=== PATIENT | male | born 1965 | race Caucasian/White ===

== ENCOUNTER 2016-03-20 17:35 | Emergency (ER) | payer MEDICARE, MEDICAID ==
[~2016-03-20] VITALS: Ht 167.6 cm; Wt 75.0 kg
[~2016-03-20 17:35] MED LIST: BUPR150CR PO; INVE1.5T PO; NAPR550T3 PO; REME30TA PO
[2016-03-20 17:36] VITALS: BP 150/86; PULSE 78; RESP 12; TEMP 97.9; O2SAT 97
[2016-03-20 19:00] VITALS: BP 137/90; PULSE 57; RESP 20; TEMP 98.7; O2SAT 95
[2016-03-20] MEDS ORDERED: SODIUM CHLORIDE 0.9% FLUSH 5 ML FLUSH IVF PRN (19:15)
--- NOTE | 2016-03-20 20:07 | PD ---
HPI . Alcohol abuse and suicidal ideation Chief Complaint: Psychiatric Symptoms Time Seen by Provider: 19:11 Travel History International Travel<30 days: No Contact w/Intl Traveler<30days: No Traveled to known affect area: No History of Present Illness HPI Patient presents complaining with alcohol abuse and suicidal ideation. He states that he had been clean and sober for several years but relapsed a couple of months ago. He states that he was in an AA meeting [email or web address]. He was expressing suicidal ideation. He was subsequently brought here for evaluation. He is voluntary. He does not have a definitive plan but states that he would probably overdose. PFSH Past Medical History Cerebrovascular Accident: Yes Gastrointestinal Disorders: Yes (endoscopy/colonoscopy 2012) GERD: Yes Hepatitis: Yes (C) Integumentary: Yes (ulcer on rt heel, scarred ) Past Surgical History Thoracic Surgery: Yes (moriah filter rt leg for dvt) Other Surgery: Yes (trachyotomy) Social History Alcohol Use: No (recovering addict) Tobacco Use: Yes (10 cigs daily) Substance Use: No Allergies-Medications (Allergen,Severity, Reaction): Coded Allergies: No Known Allergies (Unverified , 01/13/16) does not want narcotics/recovering addict Reported Meds & Prescriptions Reported Meds & Active Scripts Active No Active Prescriptions or Reported Medications Review of Systems Except as stated in HPI: all other systems reviewed are Neg General / Constitutional: No: Fever, Chills HENT: Positive: Headaches Cardiovascular: Positive: Chest Pain or Discomfort Respiratory: Positive: Shortness of Breath Gastrointestinal: Positive: Nausea, Vomiting, Abdominal Pain Musculoskeletal: Positive: Myalgias, Arthralgias Psychiatric: Positive: Depression, Suicidal Ideations, Mood Disorder, Substance Abuse Physical Exam Narrative GENERAL: This is a tearful man who smells of alcohol but he does not have slurred speech SKIN: Warm and dry. HEAD: Atraumatic. Normocephalic. EYES: Pupils equal and round. Sclerae are anicteric. ENT: No nasal bleeding or discharge. Mucous membranes pink and moist. NECK: Trachea midline. Neck is supple with full range of motion. CARDIOVASCULAR: Regular rate and rhythm. Heart sounds are normal. RESPIRATORY: No accessory muscle use. Lungs are clear with full air movement throughout. GASTROINTESTINAL: Abdomen soft, non-tender, nondistended. MUSCULOSKELETAL: No obvious deformities. No edema. NEUROLOGICAL: Awake and alert. No obvious cranial nerve deficits. Motor grossly within normal limits. Normal speech. PSYCHIATRIC: Sad with suicidal ideation but no clear plan. He does make good eye contact with the examiner. He did tell someone that he was sad and suicidal before initiating any attempt. Data Data Last Documented VS Vital Signs Date Time Temp Pulse Resp B/P Pulse Ox O2 Delivery O2 Flow Rate FiO2 03/20/16 19:00 98.7 57 20 137/90 95 Room Air Orders Complete Blood Count With Diff (03/20/16 19:12) Comprehensive Metabolic Panel (03/20/16 19:12) Drug Screen, Random Urine (03/20/16 19:12) Electrocardiogram (03/20/16 19:12) Alcohol (Ethanol) (03/20/16 19:12) Psych Screen (03/20/16 19:12) Sodium Chloride 0.9% Flush (Ns Flush) (03/20/16 19:15) Labs Laboratory Tests Test 03/20/16 03/20/16 19:10 19:40 White Blood Count 10.5 TH/MM3 Red Blood Count 4.87 MIL/MM3 Hemoglobin 15.7 GM/DL Hematocrit 45.3 % Mean Corpuscular Volume 93.2 FL Mean Corpuscular Hemoglobin 32.2 PG Mean Corpuscular Hemoglobin 34.6 % Concent Red Cell Distribution Width 13.5 % Platelet Count 155 TH/MM3 Mean Platelet Volume 10.3 FL Neutrophils (%) (Auto) 63.6 % Lymphocytes (%) (Auto) 29.4 % Monocytes (%) (Auto) 5.7 % Eosinophils (%) (Auto) 0.7 % Basophils (%) (Auto) 0.6 % Neutrophils # (Auto) 6.7 TH/MM3 Lymphocytes # (Auto) 3.1 TH/MM3 Monocytes # (Auto) 0.6 TH/MM3 Eosinophils # (Auto) 0.1 TH/MM3 Basophils # (Auto) 0.1 TH/MM3 CBC Comment DIFF FINAL Differential Comment Sodium Level 135 MEQ/L Potassium Level 3.8 MEQ/L Chloride Level 99 MEQ/L Carbon Dioxide Level 23.9 MEQ/L Anion Gap 12 MEQ/L Blood Urea Nitrogen 12 MG/DL Creatinine 0.94 MG/DL Estimat Glomerular Filtration 85 ML/MIN Rate Random Glucose 74 MG/DL Calcium Level 8.7 MG/DL Total Bilirubin 0.5 MG/DL Aspartate Amino Transf 92 U/L (AST/SGOT) Alanine Aminotransferase 66 U/L (ALT/SGPT) Alkaline Phosphatase 47 U/L Total Protein 8.0 GM/DL Albumin 4.1 GM/DL Ethyl Alcohol Level 196 MG/DL Urine Opiates Screen NEG Urine Barbiturates Screen NEG Urine Amphetamines Screen NEG Urine Benzodiazepines Screen NEG Urine Cocaine Screen NEG Urine Cannabinoids Screen NEG MDM Medical Decision Making Medical Screen Exam Complete: Yes Emergency Medical Condition: Yes Interpretation(s) EKG shows a normal sinus rhythm with no acute ischemic change. He has no old EKGs for comparison. Differential Diagnosis Differential diagnosis includes but is not limited to depression with suicidal gesture, suicide attempt, suicidal ideation, attention seeking behavior. Narrative Course Patient presents voluntarily for evaluation of alcohol abuse and suicidal ideation. I have initiated a medical clearance exam. CBC is normal. Tox screen is negative. Chemistries are unremarkable. Alcohol level is 196. Patient is medically clear for psychiatric evaluation. Diagnosis Primary Impression: Alcohol abuse Additional Impression: Suicidal ideation Scripts No Active Prescriptions or Reported Meds Condition: Ana Loera MD Mar 20, 2016 20:07
[2016-03-20 20:18] LABS: AUTOMATED NEUTROPHIL # 6.7 TH/MM3 (1.8-7.7); BASOPHIL # 0.1 TH/MM3 (0-0.2); BASOPHIL % 0.6 % (0.0-2.0); EOSINOPHIL # 0.1 TH/MM3 (0-0.4); EOSINOPHIL % 0.7 % (0.0-4.0); HEMATOCRIT 45.3 % (39.0-51.0); HEMO FLAGS DIFF FINAL; LYMPH % 29.4 % (9.0-44.0); LYMPHOCYTE # 3.1 TH/MM3 (1.0-4.8); MEAN CELL VOLUME 93.2 FL (80.0-100.0); MEAN CORPUSCULAR HEMOGLOBIN 32.2 PG (27.0-34.0); MEAN CORPUSCULAR HGB CONC 34.6 % (32.0-36.0); MONO % 5.7 % (0.0-8.0); NEUT % 63.6 % (16.0-70.0); PLATELET COUNT 155 TH/MM3 (150-450); RED BLOOD COUNT 4.87 MIL/MM3 (4.50-5.90); RED CELL DISTRIBUTION WIDTH 13.5 % (11.6-17.2); WHITE BLOOD COUNT 10.5 TH/MM3 (4.0-11.0)
[2016-03-20 20:26] LABS: AMPHETAMINE, URINE NEG (NEG); BARBITURATES, URINE NEG (NEG); COCAINE, URINE NEG (NEG)
[2016-03-20 20:46] LABS: ALKALINE PHOSPHATASE 47 U/L (45-117); ALT (GPT) 66 U/L (12-78); ANION GAP 12 MEQ/L (5-15); AST (GOT) 92 U/L (15-37); BICARBONATE 23.9 MEQ/L (21.0-32.0); BLOOD UREA NITROGEN 12 MG/DL (7-18); CHLORIDE 99 MEQ/L (98-107); GLOMERULAR FILTRATION RATE 85 ML/MIN (>89); SODIUM (NA) 135 MEQ/L (136-145); TOTAL BILIRUBIN ADULT 0.5 MG/DL (0.2-1.0)
[2016-03-20 20:47] LABS: POTASSIUM 3.8 MEQ/L (3.5-5.1)
[2016-03-20] MEDS ORDERED: LORazepam 2 MG/ML VIAL IV PUSH ONE (23:00)
[2016-03-20 23:45] VITALS: BP 122/79; PULSE 95; RESP 18; O2SAT 99
[2016-03-21 01:53] VITALS: BP 101/61; PULSE 78; RESP 18; O2SAT 97
[2016-03-21 06:27] VITALS: BP 110/65; PULSE 63; RESP 18; TEMP 98.3; O2SAT 99
[2016-03-21 10:30] VITALS: BP 136/72; PULSE 61; RESP 16; O2SAT 92
[2016-03-21 14:34] VITALS: BP 124/76; PULSE 60; RESP 18; TEMP 97.4; O2SAT 96
[2016-03-21 18:09] VITALS: BP 103/72; PULSE 61; RESP 16; O2SAT 90
--- NOTE | 2016-03-21 20:13 | EKG ---
Date Performed: 03/20/2016 Time Performed: 20:10:18 PTAGE: 50 years EKG: SINUS BRADYCARDIA BORDERLINE ECG NO PREVIOUS TRACING DOCTOR: Isak López Interpretating Date/Time 03/21/2016 20:13:13
[2016-03-21 22:00] VITALS: BP 110/69; PULSE 50; RESP 18; O2SAT 97
[2016-03-22 02:41] VITALS: BP 104/60; PULSE 86; RESP 19; O2SAT 94
[2016-03-22 06:16] VITALS: BP 123/51; PULSE 51; RESP 18; TEMP 97.1; O2SAT 99
[2016-03-22 08:42] VITALS: BP 123/51; PULSE 51; RESP 18; O2SAT 99
[2016-03-22 10:39] VITALS: BP 120/67; PULSE 86; RESP 17; O2SAT 97
== END 2016-03-22 13:27 ==
LOC: NEPC 17:35 → NEPJ 03-22 13:27
DX: F10.10 Alcohol abuse, uncomplicated (principal); R45.851 Suicidal ideations; F17.210 Nicotine dependence, cigarettes, uncomplicated; R94.31 Abnormal electrocardiogram [ECG] [EKG]
CPT/HCPCS: 80053; 80307; 80320; 85025; 93005; 96374; 99284; J2060

== ENCOUNTER 2016-07-11 15:20 | Emergency (ER) | payer MEDICARE, MEDICAID, OTHER ==
[~2016-07-11] VITALS: Ht 167.6 cm; Wt 75.0 kg
[2016-07-11 15:30] VITALS: BP 147/99; PULSE 108; RESP 18; TEMP 97.5; O2SAT 100
[2016-07-11] MEDS ORDERED: SODIUM CHLOR 0.9% 1000 ML INJ 1,000 ML IV ONE (15:45)
--- NOTE | 2016-07-11 15:52 | PD ---
HPI Chief Complaint: Psychiatric Symptoms Time Seen by Provider: 15:47 Travel History International Travel<30 days: No Contact w/Intl Traveler<30days: No Traveled to known affect area: No History of Present Illness HPI 50 year old male with PMH of Hep C (treated) GERD, depression, anxiety, ETOH abuse presents to the ED under [place] Act by law enforcement for suicidal ideation. The patient endorses suicidal ideation on presentation and states that he took "a handful" of an unknown antidepressants 2 days ago in an attempt to kill himself. He states that he wants to end his life because he started drinking again. He endorses previous suicide attempt and previous psychiatric hospitalization. He denies somatic complaints on presentation. He is requesting to eat on presentation. States that he takes no daily medications, NKDA. PFSH Past Medical History Cerebrovascular Accident: Yes Gastrointestinal Disorders: Yes (endoscopy/colonoscopy 2012) GERD: Yes Hepatitis: Yes (C) Integumentary: Yes (ulcer on rt heel, scarred ) Past Surgical History Thoracic Surgery: Yes (moriah filter rt leg for dvt) Other Surgery: Yes (trachyotomy) Social History Alcohol Use: Yes Tobacco Use: Yes (< 1 PPD) Substance Use: Yes (1/2 GALLON VODKA DAILY) Allergies-Medications (Allergen,Severity, Reaction): Coded Allergies: No Known Allergies (Unverified , 01/13/16) does not want narcotics/recovering addict Reported Meds & Prescriptions Reported Meds & Active Scripts Active No Active Prescriptions or Reported Medications Review of Systems Except as stated in HPI: all other systems reviewed are Neg Physical Exam Narrative GENERAL: Well-nourished, well-developed white male in no acute distress. SKIN: Focused skin assessment warm/dry. Patient has a linear superficial abrasion on the left cheek. No active bleeding or signs of infection. HEAD: Normocephalic. Atraumatic. EYES: No scleral icterus. No injection or drainage. PERRLA. NECK: Supple, trachea midline. No JVD or lymphadenopathy. CARDIOVASCULAR: Regular rate and rhythm without murmurs, gallops, or rubs. 2+ DP and radial pulses bilaterally. RESPIRATORY: Breath sounds clear and equal bilaterally. No accessory muscle use. GASTROINTESTINAL: Abdomen soft, non-tender, nondistended. Active bowel sounds. MUSCULOSKELETAL: No cyanosis, or edema. Patient is ambulatory most extremities spontaneously. BACK: Nontender without obvious deformity. No CVA tenderness. Data Data Last Documented VS Vital Signs Date Time Temp Pulse Resp B/P Pulse Ox O2 Delivery O2 Flow Rate FiO2 07/11/16 15:40 18 07/11/16 15:30 97.5 108 147/99 100 Orders Complete Blood Count With Diff (07/11/16:44) Comprehensive Metabolic Panel (07/11/16:44) Urinalysis - C+S If Indicated (07/11/16:44) Iv Access Insert/Monitor (07/11/16:44) Psych Screen (07/11/16:44) Drug Screen, Random Urine (07/11/16:44) Alcohol (Ethanol) (07/11/16:44) Salicylates (Aspirin) (07/11/16:44) Tylenol (Acetaminophen) (07/11/16:44) Sodium Chlor 0.9% 1000 Ml Inj (Ns 1000 M (07/11/16 15:45) Alcohol Withdrawal Asmt-Ciwa ONCE (07/11/16 15:52) Flumazenil Inj (Romazicon Inj) (07/11/16 16:00) Lorazepam (Ativan) (07/11/16 16:00) Lorazepam Inj (Ativan Inj) (07/11/16 16:00) Lorazepam (Ativan) (07/11/16 16:00) Lorazepam Inj (Ativan Inj) (07/11/16 16:00) Lorazepam Inj (Ativan Inj) (07/11/16 16:00) Lorazepam Inj (Ativan Inj) (07/11/16 16:00) Lorazepam (Ativan) (07/11/16 16:00) Potassium Chloride (Kcl) (07/11/16 17:30) Labs Laboratory Tests Test 07/11/16 15:50 White Blood Count 13.0 TH/MM3 Red Blood Count 4.77 MIL/MM3 Hemoglobin 14.8 GM/DL Hematocrit 44.3 % Mean Corpuscular Volume 92.8 FL Mean Corpuscular Hemoglobin 31.1 PG Mean Corpuscular Hemoglobin 33.5 % Concent Red Cell Distribution Width 14.9 % Platelet Count 115 TH/MM3 Mean Platelet Volume 9.6 FL Neutrophils (%) (Auto) 68.4 % Lymphocytes (%) (Auto) 24.5 % Monocytes (%) (Auto) 5.3 % Eosinophils (%) (Auto) 1.2 % Basophils (%) (Auto) 0.6 % Neutrophils # (Auto) 8.9 TH/MM3 Lymphocytes # (Auto) 3.2 TH/MM3 Monocytes # (Auto) 0.7 TH/MM3 Eosinophils # (Auto) 0.2 TH/MM3 Basophils # (Auto) 0.1 TH/MM3 CBC Comment DIFF FINAL Differential Comment Urine Color YELLOW Urine Turbidity CLEAR Urine pH 7.0 Urine Specific [place] 1.017 Urine Protein TRACE mg/dL Urine Glucose (UA) NEG mg/dL Urine Ketones TRACE mg/dL Urine Occult Blood NEG Urine Nitrite NEG Urine Bilirubin NEG Urine Urobilinogen LESS THAN 2.0 MG/DL Urine Leukocyte Esterase NEG Urine RBC 1 /hpf Urine WBC 2 /hpf Urine Bacteria RARE /hpf Urine Hyaline Casts 3 /lpf Urine Mucus FEW /lpf Microscopic Urinalysis Comment CULT NOT INDICATED Sodium Level 141 MEQ/L Potassium Level 3.3 MEQ/L Chloride Level 103 MEQ/L Carbon Dioxide Level 23.5 MEQ/L Anion Gap 15 MEQ/L Blood Urea Nitrogen 9 MG/DL Creatinine 0.91 MG/DL Estimat Glomerular Filtration 88 ML/MIN Rate Random Glucose 85 MG/DL Calcium Level 8.5 MG/DL Total Bilirubin 0.5 MG/DL Aspartate Amino Transf 49 U/L (AST/SGOT) Alanine Aminotransferase 38 U/L (ALT/SGPT) Alkaline Phosphatase 49 U/L Total Protein 7.5 GM/DL Albumin 4.2 GM/DL Salicylates Level 3.2 MG/DL Urine Opiates Screen NEG Acetaminophen Level LESS THAN 2.0 MCG/ML Urine Barbiturates Screen NEG Urine Amphetamines Screen NEG Urine Benzodiazepines Screen NEG Urine Cocaine Screen NEG Urine Cannabinoids Screen POS Ethyl Alcohol Level 222 MG/DL MDM Medical Decision Making Medical Screen Exam Complete: Yes Emergency Medical Condition: Yes Differential Diagnosis Adjustment disorder versus anxiety versus bipolar versus depression versus dementia versus electrolyte disorder versus malingering versus mood disorder versus ODD versus psychosis versus PTSD versus schizophrenia versus schizoaffective disorder versus substance-induced mood disorder versus other Narrative Course 50 year old male with PMH of Hep C (treated) GERD, depression, anxiety, ETOH abuse presents to the ED under [place] Act by law enforcement for suicidal ideation. The patient endorses suicidal ideation on presentation and states that he took "a handful" of an unknown antidepressants 2 days ago in an attempt to kill himself. He states that he wants to end his life because he started drinking again. He endorses previous suicide attempt and previous psychiatric hospitalization. He denies somatic complaints on presentation. He is requesting to eat on presentation. States that he takes no daily medications, NKDA. Vitals reviewed. Pulse 108 on presentation. Buccal exam reveals a nontoxic-appearing, alert, oriented white male in no acute distress. He was administered 1 mg of Ativan by mouth. CIWA protocol was ordered. LABS: Mild elevation of the white count, likely stress reaction. Potassium 3.3. He is administered 40 mEq of potassium by mouth. No other concerning abnormalities of CBC, CMP, UA. Salicylates and acetaminophen within normal limits. Tox screen positive for cannabinoids, EtOH 222. He is medically cleared for psychiatric evaluation. Please see psych notes for disposition. Diagnosis Primary Impression: Suicidal ideation Additional Impression: Alcohol abuse Scripts No Active Prescriptions or Reported Meds Eli Pan July 11, 2016 15:52
[2016-07-11] MEDS ORDERED: LORazepam 1 MG TAB PO ONE (16:00)
[2016-07-11] MEDS ORDERED: LORazepam 1 MG TAB PO PRN (16:00)
[2016-07-11] MEDS ORDERED: LORazepam 2 MG/ML VIAL IV PUSH PRN ×4 (16:00)
[2016-07-11] MEDS ORDERED: LORazepam 2 MG TAB PO PRN (16:00)
[2016-07-11] MEDS ORDERED: FLUMAZENIL 0.5 MG/5 ML VIAL IV PUSH PRN (16:00)
[2016-07-11 16:25] LABS: AUTOMATED NEUTROPHIL # 8.9 TH/MM3 (1.8-7.7); BASOPHIL # 0.1 TH/MM3 (0-0.2); BASOPHIL % 0.6 % (0.0-2.0); EOSINOPHIL # 0.2 TH/MM3 (0-0.4); EOSINOPHIL % 1.2 % (0.0-4.0); HEMATOCRIT 44.3 % (39.0-51.0); HEMO FLAGS DIFF FINAL; LYMPH % 24.5 % (9.0-44.0); LYMPHOCYTE # 3.2 TH/MM3 (1.0-4.8); MEAN CELL VOLUME 92.8 FL (80.0-100.0); MEAN CORPUSCULAR HEMOGLOBIN 31.1 PG (27.0-34.0); MEAN CORPUSCULAR HGB CONC 33.5 % (32.0-36.0); MONO % 5.3 % (0.0-8.0); NEUT % 68.4 % (16.0-70.0); PLATELET COUNT 115 TH/MM3 (150-450); RED BLOOD COUNT 4.77 MIL/MM3 (4.50-5.90); RED CELL DISTRIBUTION WIDTH 14.9 % (11.6-17.2)
[2016-07-11 16:46] LABS: BACTERIA, URINE RARE /hpf; BLOOD, URINE NEG (NEG); COMMENT (UR) CULT NOT INDICATED; CULTURE IF INDICATED CULT NOT INDICATED; GLUCOSE,URINE NEG (NEG); HYALINE CAST, URINE 3 /lpf (RARE); KETONE, URINE TRACE mg/dL (NEG); MUCUS URINE FEW /lpf (OCC); NITRITE,URINE NEG (NEG); URINE COLOR YELLOW (YELLW/STRAW)
[2016-07-11 16:47] LABS: ANION GAP 15 MEQ/L (5-15)
[2016-07-11 16:51] LABS: ACETAMINOPHEN LESS THAN 2.0 MCG/ML (10.0-30.0); ALKALINE PHOSPHATASE 49 U/L (45-117); ALT (GPT) 38 U/L (12-78); AST (GOT) 49 U/L (15-37); BICARBONATE 23.5 MEQ/L (21.0-32.0); BLOOD UREA NITROGEN 9 MG/DL (7-18); CHLORIDE 103 MEQ/L (98-107); GLOMERULAR FILTRATION RATE 88 ML/MIN (>89); POTASSIUM 3.3 MEQ/L (3.5-5.1); SODIUM (NA) 141 MEQ/L (136-145); TOTAL BILIRUBIN ADULT 0.5 MG/DL (0.2-1.0)
[2016-07-11 17:03] LABS: AMPHETAMINE, URINE NEG (NEG); BARBITURATES, URINE NEG (NEG); COCAINE, URINE NEG (NEG)
[2016-07-11 17:24] VITALS: BP 129/89; PULSE 93; RESP 15; O2SAT 97
[2016-07-11] MEDS ORDERED: POTASSIUM CHLORIDE 20 MEQ CONTROLLED RELEASE TAB PO ONE (17:30)
[2016-07-12 00:44] VITALS: BP 143/95; PULSE 72; RESP 18; O2SAT 95
[2016-07-12 02:00] VITALS: BP 125/60; PULSE 78; RESP 18; O2SAT 94
[2016-07-12 06:00] VITALS: BP 122/74; PULSE 63; RESP 19; O2SAT 98
[2016-07-12 10:10] VITALS: BP 136/93; PULSE 83; RESP 16; TEMP 98.8; O2SAT 97
[2016-07-12] MEDS ORDERED: NICOTINE 14 MG/24 HR PATCH T-DERMAL ONE (14:15)
--- NOTE | 2016-07-12 15:08 | PD ---
History of Present Illness Chief Complaint: Psychiatric Symptoms Time Seen by Provider: 15:00 Travel History International Travel<30 Days: No Contact w/Intl Traveler<30days: No Known affected area: No Legal Status Legal Status: Norris Act Norris Act Signed By: Toby Norris Act Comment: 2016 @ 1525 History of Present Illness: 50-year-old male with significant multiyear history of alcoholism. He began drinking recently for the unknown number of time. Was intoxicated when he became suicidal and brought to the emergency department. No longer intoxicated and now denies any suicidal ideation, plan or intention. Cognition is intact and the patient is verbally obdulia for safety. No psychotic symptoms. Patient is calm and cooperative. PFSH Past Medical History Medical History: Denies Significant Hx Cerebrovascular Accident: Yes Gastrointestinal Disorders: Yes (endoscopy/colonoscopy 2012) GERD: Yes Hepatitis: Yes (C) Integumentary: Yes (ulcer on rt heel, scarred ) Past Surgical History Thoracic Surgery: Yes (moriah filter rt leg for dvt) Other Surgery: Yes (trachyotomy) Psychiatric History Psychiatric History Hx Psychiatric Treatment: PER PATIENT; PTSD, SCHIZOAFFECTIVE DISORDER BI- POLAR TYPE, ANTI- SOCIAL PERSONALITY DISORDER, ANXIETY no evidence of active major mental illness at this time. This physician believes patient's primary problem is alcoholism. History of Inpatient Treatment: No Guns or firearms in home: No Social History Hx Alcohol Use: Yes Hx Tobacco Use: Yes Hx Substance Use: Yes (marijuana, cocaine) Substance Use Type: Alcohol, Crack, Marijuana, Cocaine Other Substances Used: 2 "8 BALLS" IN THE LAST MONTH Hx of Substance Use Treatment: Yes Allergies-Medications (Allergen,Severity, Reaction): Coded Allergies: No Known Allergies (Unverified , 01/13/16) does not want narcotics/recovering addict Reported Meds & Prescriptions Reported Meds & Active Scripts Active No Active Prescriptions or Reported Medications Review of Systems Except as stated in HPI: all other systems reviewed are Neg Exam Alert: Yes [place]: Person, Place, Date, Situation Mood: Calm Affect: Appropriate Speech: Clear, Logical Eye Contact: Normal Memory Intact: Immediate, Recent, Remote Insight/Judgement Adequate except with regard to the use of alcohol. MDM Medical Decision Making Medical Record Reviewed: Yes Assessment/Plan Patient to be discharged home in Norris act discontinued. He does not meet criteria for Norris act or for inpatient psychiatric hospitalization at this time. Orders Complete Blood Count With Diff (07/11/16 15:44) Comprehensive Metabolic Panel (07/11/16 15:44) Urinalysis - C+S If Indicated (07/11/16:44) Iv Access Insert/Monitor (07/11/16:44) Psych Screen (07/11/16:44) Drug Screen, Random Urine (07/11/16:44) Alcohol (Ethanol) (07/11/16:44) Salicylates (Aspirin) (07/11/16:44) Tylenol (Acetaminophen) (07/11/16:44) Sodium Chlor 0.9% 1000 Ml Inj (Ns 1000 M (07/11/16 15:45) Alcohol Withdrawal Asmt-Ciwa ONCE (07/11/16 15:52) Flumazenil Inj (Romazicon Inj) (07/11/16 16:00) Lorazepam (Ativan) (07/11/16 16:00) Lorazepam Inj (Ativan Inj) (07/11/16 16:00) Lorazepam (Ativan) (07/11/16 16:00) Lorazepam Inj (Ativan Inj) (07/11/16 16:00) Lorazepam Inj (Ativan Inj) (07/11/16 16:00) Lorazepam Inj (Ativan Inj) (07/11/16 16:00) Lorazepam (Ativan) (07/11/16 16:00) Potassium Chloride (Kcl) (07/11/16 17:30) Diet Regular Basic (07/11/16 Dinner) Diet Regular Basic (07/12/16 Breakfast) Diet Regular Basic (07/12/16 Lunch) Diet Regular Basic (07/12/16 Dinner) Nicotine 14 Mg Patch.24 Hr (Habitrol 14 (07/12/16 14:15) Results Vital Signs Date Time Temp Pulse Resp B/P Pulse Ox O2 Delivery O2 Flow Rate FiO2 07/12/16 10:10 98.8 83 16 136/93 97 07/12/16 06:00 63 19 122/74 98 Room Air 07/12/16 02:00 78 18 125/60 94 Room Air 07/12/16 00:44 72 18 143/95 95 Room Air 07/11/16 17:24 93 15 129/89 97 Room Air 07/11/16 15:40 18 07/11/16 15:30 97.5 108 18 147/99 100 Laboratory Tests Test 07/11/16 15:50 White Blood Count 13.0 Red Blood Count 4.77 Hemoglobin 14.8 Hematocrit 44.3 Mean Corpuscular Volume 92.8 Mean Corpuscular Hemoglobin 31.1 Mean Corpuscular Hemoglobin 33.5 Concent Red Cell Distribution Width 14.9 Platelet Count 115 Mean Platelet Volume 9.6 Neutrophils (%) (Auto) 68.4 Lymphocytes (%) (Auto) 24.5 Monocytes (%) (Auto) 5.3 Eosinophils (%) (Auto) 1.2 Basophils (%) (Auto) 0.6 Neutrophils # (Auto) 8.9 Lymphocytes # (Auto) 3.2 Monocytes # (Auto) 0.7 Eosinophils # (Auto) 0.2 Basophils # (Auto) 0.1 CBC Comment DIFF FINAL Differential Comment Urine Color YELLOW Urine Turbidity CLEAR Urine pH 7.0 Urine Specific [place] 1.017 Urine Protein TRACE Urine Glucose (UA) NEG Urine Ketones TRACE Urine Occult Blood NEG Urine Nitrite NEG Urine Bilirubin NEG Urine Urobilinogen LESS THAN 2.0 Urine Leukocyte Esterase NEG Urine RBC 1 Urine WBC 2 Urine Bacteria RARE Urine Hyaline Casts 3 Urine Mucus FEW Microscopic Urinalysis Comment CULT NOT INDICATED Sodium Level 141 Potassium Level 3.3 Chloride Level 103 Carbon Dioxide Level 23.5 Anion Gap 15 Blood Urea Nitrogen 9 Creatinine 0.91 Estimat Glomerular Filtration 88 Rate Random Glucose 85 Calcium Level 8.5 Total Bilirubin 0.5 Aspartate Amino Transf 49 (AST/SGOT) Alanine Aminotransferase 38 (ALT/SGPT) Alkaline Phosphatase 49 Total Protein 7.5 Albumin 4.2 Salicylates Level 3.2 Urine Opiates Screen NEG Acetaminophen Level LESS THAN 2.0 Urine Barbiturates Screen NEG Urine Amphetamines Screen NEG Urine Benzodiazepines Screen NEG Urine Cocaine Screen NEG Urine Cannabinoids Screen POS Ethyl Alcohol Level 222 Diagnosis Primary Impression: Alcohol abuse Prescriptions No Active Prescriptions or Reported Meds Ralph Waldrop MD July 12, 2016 15:08
== END 2016-07-12 16:45 | disposition home or self-care (01) ==
LOC: NEPC 15:20 → NEPJ 07-12 16:45
DX: F10.10 Alcohol abuse, uncomplicated (principal); Y90.7 Blood alcohol level of 200-239 mg/100 ml
CPT/HCPCS: 80053; 80307; 81001; 85025; 96360; 99285; J7030

== ENCOUNTER 2017-02-28 19:55 | Emergency (ER) | payer MEDICARE, MEDICAID ==
[~2017-02-28] VITALS: Ht 167.6 cm; Wt 73.0 kg
[2017-02-28 20:16] VITALS: BP 148/80; PULSE 94; RESP 16; O2SAT 97
[2017-02-28] MEDS ORDERED: SODIUM CHLOR 0.9% 1000 ML INJ 1,000 ML IV ONE (20:23)
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
[2017-02-28] MEDS ORDERED: SODIUM CHLORIDE 0.9% FLUSH 10 ML FLUSH IVF PRN (20:30)
[2017-02-28 20:51] VITALS: O2SAT 97
[2017-02-28 21:12] LABS: BILIRUBIN, URINE NEG (NEG); BLOOD, URINE NEG (NEG); GLUCOSE,URINE NEG (NEG); KETONE, URINE NEG (NEG); NITRITE,URINE NEG (NEG); PH, URINE 5.5 (5.0-8.5); URINE COLOR LIGHT-YELLOW (YELLW/STRAW); URINE LEUKOCYTE ESTERASE TRACE (NEG)
[2017-02-28 21:12] LABS: AUTOMATED NEUTROPHIL # 6.5 TH/MM3 (1.8-7.7); BASOPHIL # 0.1 TH/MM3 (0-0.2); BASOPHIL % 0.7 % (0.0-2.0); EOSINOPHIL # 0.5 TH/MM3 (0-0.4); EOSINOPHIL % 4.2 % (0.0-4.0); HEMOGLOBIN 13.3 GM/DL (13.0-17.0); LYMPHOCYTE # 4.1 TH/MM3 (1.0-4.8); MEAN CELL VOLUME 92.5 FL (80.0-100.0); MEAN CORPUSCULAR HEMOGLOBIN 31.6 PG (27.0-34.0); MEAN CORPUSCULAR HGB CONC 34.1 % (32.0-36.0); MEAN PLATELET VOLUME 9.6 FL (7.0-11.0); MONO % 5.1 % (0.0-8.0); MONOCYTE # 0.6 TH/MM3 (0-0.9); PLATELET COUNT 154 TH/MM3 (150-450); RED BLOOD COUNT 4.21 MIL/MM3 (4.50-5.90); RED CELL DISTRIBUTION WIDTH 12.9 % (11.6-17.2); WHITE BLOOD COUNT 11.8 TH/MM3 (4.0-11.0)
[2017-02-28 21:25] LABS: CALCIUM 8.5 MG/DL (8.5-10.1); CREATININE 0.9 MG/DL (0.60-1.30)
[2017-02-28 21:27] LABS: MAGNESIUM 1.8 MG/DL (1.5-2.5)
[2017-02-28 21:30] LABS: TROPONIN I LESS THAN 0.02 NG/ML (0.02-0.05)
--- NOTE | 2017-02-28 21:43 | RADRPT ---
EXAM DATE/TIME: 02/28/2017 21:10 [facility] COMPARISON: No previous studies available for comparison. INDICATIONS : Syncope, cough MEDICAL HISTORY : None. SURGICAL HISTORY : None. ENCOUNTER: Initial ACUITY: 1 day PAIN SCORE: 0/10 LOCATION: Bilateral chest FINDINGS: No slight blunting of the costophrenic angles of undetermined chronicity. No definite consolidative i nfiltrate. Cardiomediastinal contours are satisfactory for technique and projection. CONCLUSION: Slight blunting of the cardiophrenic angles Zeke Lyles MD on February 28, 2017 at 21:40 Board Certified Radiologist. This report was verified electronically.
[2017-02-28] MEDS ORDERED: POTASSIUM CHLORIDE 20 MEQ CONTROLLED RELEASE TAB PO ONE (22:15)
--- NOTE | 2017-02-28 22:40 | RADRPT ---
EXAM DATE/TIME: 02/28/2017 22:13 [facility] COMPARISON: No previous studies available for comparison. INDICATIONS : Possible seizure, syncopal episode. RADIATION DOSE: 56.35 CTDIvol (mGy) MEDICAL HISTORY : Cerebrovascular disease. SURGICAL HISTORY : None. ENCOUNTER: Initial ACUITY: 1 day PAIN SCALE: 0/10 LOCATION: cranial TECHNIQUE: Multiple contiguous axial images were obtained of the head. Using automated exposure control and adj ustment of the mA and/or kV according to patient size, radiation dose was kept as low as reasonably a chievable to obtain optimal diagnostic quality images. DICOM format image data is available electro nically for review and comparison. FINDINGS: CEREBRUM: The ventricles are normal for age. No evidence of midline shift, mass lesion, hemorrhage or acute in farction. No extra-axial fluid collections are seen. POSTERIOR FOSSA: The cerebellum and brainstem are intact. The 4th ventricle is midline. The cerebellopontine angle i s unremarkable. EXTRACRANIAL: Mild mucosal disease occasional facial sinuses. Mildly displaced fracture of the nasal bone of undete rmined age. SKULL: The calvaria is intact. No evidence of skull fracture. CONCLUSION: No acute intracranial injury. Mildly displaced nasal bone fracture of undetermined age. Zeke Lyles MD on February 28, 2017 at 22:37 Board Certified Radiologist. This report was verified electronically.
[2017-02-28 23:21] VITALS: BP_SYST 143; BP_SYST 147; BP_DIAS 72; BP_DIAS 74; RESP 18
--- NOTE | 2017-03-01 14:15 | EKG ---
Date Performed: 02/28/2017 Time Performed: 20:46:24 PTAGE: 51 years EKG: Sinus rhythm NORMAL ECG PREVIOUS TRACING : 03/20/2016 20.10 Since prior tracing, sinus rate is faster. DOCTOR: Zenon Xie Interpretating Date/Time 03/01/2017 14:14:15
== END 2017-02-28 23:28 | disposition home or self-care (01) ==
LOC: NEPC 19:55
DX: R55 Syncope and collapse (principal); E87.6 Hypokalemia; F17.200 Nicotine dependence, unspecified, uncomplicated; F19.10 Other psychoactive substance abuse, uncomplicated
CPT/HCPCS: 70450; 71010; 80048; 80307; 81001; 82550; 82552; 83605; 83735; 84484; 85025; 93005; 96360; 99285; J7030

== ENCOUNTER 2017-04-07 16:48 | Emergency (ER) | payer MEDICARE, MEDICAID ==
[~2017-04-07] VITALS: Ht 177.8 cm; Wt 70.0 kg
[2017-04-07 16:50] VITALS: BP 128/92; PULSE 92; RESP 16; TEMP 97.8; O2SAT 95
--- NOTE | 2017-04-07 17:08 | PD ---
HPI Chief Complaint: Psychiatric Symptoms Time Seen by Provider: 16:58 Travel History International Travel<30 days: No Contact w/Intl Traveler<30days: No Traveled to known affect area: No History of Present Illness HPI 51-year-old male complains requesting psychiatric evaluation. Patient has history of schizoaffective disorder, bipolar disorder and ADHD. Patient states that he stopped taking his medication 2 weeks ago. Patient has been abusing cocaine, heroin and alcohol. Last use was this morning. Patient requesting psychiatric evaluation for depression and suicidal ideation. Patient denies any headache. Patient denies any chest pain or shortness of breath. Patient denies abdominal pain. Patient denies any nausea vomiting diarrhea. Patient denies any fever chills. PFSH Past Medical History Cerebrovascular Accident: Yes Gastrointestinal Disorders: Yes (endoscopy/colonoscopy 2012) GERD: Yes Hepatitis: Yes (C) Integumentary: Yes (ulcer on rt heel, scarred ) Past Surgical History Thoracic Surgery: Yes (moriah filter rt leg for dvt) Other Surgery: Yes (trachyotomy) Social History Alcohol Use: Yes Tobacco Use: Yes (1 PPD) Substance Use: Yes (marijuana, cocaine) Allergies-Medications (Allergen,Severity, Reaction): Coded Allergies: morphine (Unverified Allergy, Severe, Anaphylaxis, 04/07/17) PER PATIENT Reported Meds & Prescriptions Reported Meds & Active Scripts Active Reported Invega (Paliperidone ER) 3 Mg Tab 3 Mg DAILY Review of Systems General / Constitutional: No: Fever Eyes: No: Visual changes HENT: No: Headaches Cardiovascular: No: Chest Pain or Discomfort Respiratory: No: Shortness of Breath Gastrointestinal: No: Abdominal Pain Genitourinary: No: Dysuria Musculoskeletal: No: Pain Skin: No Rash Neurologic: No: Weakness Psychiatric: No: Depression Endocrine: No: Polydipsia Hematologic/Lymphatic: No: Easy Bruising Physical Exam Narrative GENERAL: Well-nourished, well-developed patient. SKIN: Focused skin assessment warm/dry. HEAD: Normocephalic. EYES: No scleral icterus. No injection or drainage. NECK: Supple, trachea midline. No JVD or lymphadenopathy. CARDIOVASCULAR: Regular rate and rhythm without murmurs, gallops, or rubs. RESPIRATORY: Breath sounds equal bilaterally. No accessory muscle use. GASTROINTESTINAL: Abdomen soft, non-tender, nondistended. MUSCULOSKELETAL: No cyanosis, or edema. BACK: Nontender without obvious deformity. No CVA tenderness. Neurologic exam normal. Data Data Last Documented VS Vital Signs Date Time Temp Pulse Resp B/P (MAP) Pulse Ox O2 Delivery O2 Flow Rate FiO2 04/08/17 10:05 04/08/17 06:48 99.1 58 18 95 Room Air Orders Orders Complete Blood Count With Diff (04/07/17 17:03) Comprehensive Metabolic Panel (04/07/17 17:03) Thyroid Stimulating Hormone (04/07/17 17:03) Psych Screen (04/07/17 17:03) Drug Screen, Random Urine (04/07/17 17:03) Alcohol (Ethanol) (04/07/17 17:03) Diet Regular Basic (04/08/17 Breakfast) Ed Discharge Order (04/08/17 09:35) Labs Laboratory Tests Test 04/07/17 17:30 04/07/17 23:11 White Blood Count 10.6 TH/MM3 Red Blood Count 4.39 MIL/MM3 Hemoglobin 14.3 GM/DL Hematocrit 40.1 % Mean Corpuscular Volume 91.3 FL Mean Corpuscular Hemoglobin 32.6 PG Mean Corpuscular Hemoglobin Concent 35.7 % Red Cell Distribution Width 14.2 % Platelet Count 149 TH/MM3 Mean Platelet Volume 9.7 FL Neutrophils (%) (Auto) 58.7 % Lymphocytes (%) (Auto) 31.3 % Monocytes (%) (Auto) 6.9 % Eosinophils (%) (Auto) 2.5 % Basophils (%) (Auto) 0.6 % Neutrophils # (Auto) 6.2 TH/MM3 Lymphocytes # (Auto) 3.3 TH/MM3 Monocytes # (Auto) 0.7 TH/MM3 Eosinophils # (Auto) 0.3 TH/MM3 Basophils # (Auto) 0.1 TH/MM3 CBC Comment DIFF FINAL Differential Comment Blood Urea Nitrogen 6 MG/DL Creatinine 0.81 MG/DL Random Glucose 79 MG/DL Total Protein 7.3 GM/DL Albumin 4.0 GM/DL Calcium Level 9.1 MG/DL Alkaline Phosphatase 50 U/L Aspartate Amino Transf (AST/SGOT) 25 U/L Alanine Aminotransferase (ALT/SGPT) 27 U/L Total Bilirubin 0.4 MG/DL Sodium Level 132 MEQ/L Potassium Level 3.5 MEQ/L Chloride Level 96 MEQ/L Carbon Dioxide Level 25.6 MEQ/L Anion Gap 10 MEQ/L Estimat Glomerular Filtration Rate 100 ML/MIN Thyroid Stimulating Hormone 3rd Gen 0.992 uIU/ML Ethyl Alcohol Level 131 MG/DL Urine Opiates Screen NEG Urine Barbiturates Screen NEG Urine Amphetamines Screen NEG Urine Benzodiazepines Screen NEG Urine Cocaine Screen POS Urine Cannabinoids Screen NEG MDM Medical Decision Making Medical Screen Exam Complete: Yes Emergency Medical Condition: Yes Interpretation(s) 2036 PM. CBC within normal limit. Sodium 132. CMP otherwise within normal limit. TSH normal. Alcohol 131. Differential Diagnosis Differential diagnosis including drug-induced mood disorder, depression, suicidal, schizophrenia, bipolar disorder. Narrative Course 51-year-old male requesting psychiatric evaluation. Patient states that he is feeling suicidal. History of schizoaffective disorder, bipolar disorder, ADHD. Patient has history of substance abuse also. Ernie Gleason MD Apr 07, 2017 17:08
[2017-04-07] MEDS ORDERED: INVE3TAB2 (17:14)
[2017-04-07 17:59] LABS: AUTOMATED NEUTROPHIL # 6.2 TH/MM3 (1.8-7.7); BASOPHIL # 0.1 TH/MM3 (0-0.2); BASOPHIL % 0.6 % (0.0-2.0); EOSINOPHIL # 0.3 TH/MM3 (0-0.4); EOSINOPHIL % 2.5 % (0.0-4.0); HEMATOCRIT 40.1 % (39.0-51.0); HEMOGLOBIN 14.3 GM/DL (13.0-17.0); LYMPH % 31.3 % (9.0-44.0); LYMPHOCYTE # 3.3 TH/MM3 (1.0-4.8); MEAN CELL VOLUME 91.3 FL (80.0-100.0); MEAN CORPUSCULAR HEMOGLOBIN 32.6 PG (27.0-34.0); MEAN CORPUSCULAR HGB CONC 35.7 % (32.0-36.0); MEAN PLATELET VOLUME 9.7 FL (7.0-11.0); MONO % 6.9 % (0.0-8.0); MONOCYTE # 0.7 TH/MM3 (0-0.9); NEUT % 58.7 % (16.0-70.0); PLATELET COUNT 149 TH/MM3 (150-450); RED BLOOD COUNT 4.39 MIL/MM3 (4.50-5.90); RED CELL DISTRIBUTION WIDTH 14.2 % (11.6-17.2); WHITE BLOOD COUNT 10.6 TH/MM3 (4.0-11.0)
[2017-04-07 18:04] LABS: AST (GOT) 25 U/L (15-37); BICARBONATE 25.6 MEQ/L (21.0-32.0); BLOOD UREA NITROGEN 6 MG/DL (7-18); CALCIUM 9.1 MG/DL (8.5-10.1); CHLORIDE 96 MEQ/L (98-107); CREATININE 0.81 MG/DL (0.60-1.30); GLOMERULAR FILTRATION RATE 100 ML/MIN (>89); GLUCOSE,RANDOM 79 MG/DL (74-106); SODIUM (NA) 132 MEQ/L (136-145)
[2017-04-07 18:06] LABS: ALT (GPT) 27 U/L (12-78)
[2017-04-07 18:15] LABS: ALKALINE PHOSPHATASE 50 U/L (45-117); TOTAL BILIRUBIN ADULT 0.4 MG/DL (0.2-1.0); TOTAL PROTEIN 7.3 GM/DL (6.4-8.2)
[2017-04-07 23:10] VITALS: BP 133/73; PULSE 77; RESP 18; TEMP 100.1; O2SAT 95
[2017-04-08 06:48] VITALS: BP 125/72; PULSE 58; RESP 18; TEMP 99.1; O2SAT 95
--- NOTE | 2017-04-08 09:20 | PD ---
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 Patient provides a list of multiple psychiatric disorders including schizoaffective disorder, bipolar disorder, etc. that he reportedly suffers from. This physician does not see any significant objective clinical evidence of these other mental health disorders but the patient is obviously a drug addict and claims to be actively suicidal. For this reason he is being transferred to the [facility] for further evaluation and treatment. PFSH Past Medical History Cerebrovascular Accident: Yes (TBI) Gastrointestinal Disorders: Yes (endoscopy/colonoscopy 2012, Stage 2 liver disease) GERD: Yes Hepatitis: Yes (C) Psychiatric: Yes (alcoholic, addict, schizophrenia) Integumentary: Yes (ulcer on rt heel, scarred ) Tetanus Vaccination: Unknown Influenza Vaccination: No Past Surgical History Thoracic Surgery: Yes (moriah filter rt leg for dvt) Other Surgery: Yes (trachyotomy, chest tubes) Psychiatric History Psychiatric History Hx Psychiatric Treatment: HX: BIPOLAR DISORDER AND ANTISOCIAL PERSONALITY DISORDER REPORTED THAT HE WAS DR. CHIQUITA RODRIGUES [place] WAS PRESCRIBING HIS PSYCHIATRIC MEDICATIONS UNTIL RECENTLY. 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 History of Inpatient Treatment: Yes Guns or firearms in home: No Social History Hx Alcohol Use: Yes (pt states he just relapsed) Hx Tobacco Use: Yes (1 PPD) Hx Substance Use: Yes Substance Use Type: Alcohol, Crack, Marijuana, Amphetamines-Stimulants, Prescription Medications, Benzos (Valium,Xanax), Heroin, Cocaine Other Substances Used: 2 "8 BALLS" IN THE LAST MONTH Hx of Substance Use Treatment: Yes Allergies-Medications (Allergen,Severity, Reaction): Coded Allergies: morphine (Unverified Allergy, Severe, Anaphylaxis, 04/07/17) PER PATIENT Reported Meds & Prescriptions Reported Meds & Active Scripts Active Reported Invega (Paliperidone ER) 3 Mg Tab 3 Mg DAILY Review of Systems ROS Limitations: Clinical Condition Psychiatric: COMPLAINS OF: Suicidal Ideation Except as stated in HPI: all other systems reviewed are Neg Mental Status Examination Appearance: Dirty, Disheveled Consciousness: Alert Orientation: x4 Motor Activity: Normal gait Speech: Unremarkable Language: Adequate Fund of Knowledge: Adequate Attention and Concentration: Adequate Memory: Unremarkable Mood: Appropriate Affect: Appropriate Thought Process & Associations: Intact Thought Content: Appropriate Hallucination Type: None Delusion Type: None Suicidal Ideation: Yes Suicidal Plan: No Suicidal Intention: No Homicidal Ideation: No Homicidal Plan: No Homicidal Intention: No Insight: Adequate Judgment: Adequate MDM Medical Decision Making Medical Record Reviewed: Yes Assessment/Plan Patient interviewed at bedside. Electronic medical record reviewed. Case discussed with nurse Itzel. Orders Orders Complete Blood Count With Diff (04/07/17 17:03) Comprehensive Metabolic Panel (04/07/17 17:03) Thyroid Stimulating Hormone (04/07/17 17:03) Psych Screen (04/07/17 17:03) Drug Screen, Random Urine (04/07/17 17:03) Alcohol (Ethanol) (04/07/17 17:03) Diet Regular Basic (04/08/17 Breakfast) Results Vital Signs Date Time Temp Pulse Resp B/P (MAP) Pulse Ox O2 Delivery O2 Flow Rate FiO2 04/08/17 06:48 99.1 58 18 125/72 (89) 95 Room Air 04/07/17 23:10 100.1 77 18 133/73 (93) 95 Room Air 04/07/17 16:50 97.8 92 16 128/92 (104) 95 Laboratory Tests Test 04/07/17 17:30 04/07/17 23:11 White Blood Count 10.6 Red Blood Count 4.39 Hemoglobin 14.3 Hematocrit 40.1 Mean Corpuscular Volume 91.3 Mean Corpuscular Hemoglobin 32.6 Mean Corpuscular Hemoglobin Concent 35.7 Red Cell Distribution Width 14.2 Platelet Count 149 Mean Platelet Volume 9.7 Neutrophils (%) (Auto) 58.7 Lymphocytes (%) (Auto) 31.3 Monocytes (%) (Auto) 6.9 Eosinophils (%) (Auto) 2.5 Basophils (%) (Auto) 0.6 Neutrophils # (Auto) 6.2 Lymphocytes # (Auto) 3.3 Monocytes # (Auto) 0.7 Eosinophils # (Auto) 0.3 Basophils # (Auto) 0.1 CBC Comment DIFF FINAL Differential Comment Blood Urea Nitrogen 6 Creatinine 0.81 Random Glucose 79 Total Protein 7.3 Albumin 4.0 Calcium Level 9.1 Alkaline Phosphatase 50 Aspartate Amino Transf (AST/SGOT) 25 Alanine Aminotransferase (ALT/SGPT) 27 Total Bilirubin 0.4 Sodium Level 132 Potassium Level 3.5 Chloride Level 96 Carbon Dioxide Level 25.6 Anion Gap 10 Estimat Glomerular Filtration Rate 100 Thyroid Stimulating Hormone 3rd Gen 0.992 Ethyl Alcohol Level 131 Urine Opiates Screen NEG Urine Barbiturates Screen NEG Urine Amphetamines Screen NEG Urine Benzodiazepines Screen NEG Urine Cocaine Screen POS Urine Cannabinoids Screen NEG Diagnosis Primary Impression: Polysubstance abuse Ralph Waldrop MD Apr 08, 2017 09:20
--- NOTE | 2017-04-08 09:37 | PD ---
Physical Exam Date Seen by Provider: Apr 08, 2017 Time Seen by Provider: 09:35 Narrative 51-year-old male previously medically cleared for psychiatric evaluation, has been seen by Dr. Waldrop, and felt to be psychiatrically stable for discharge to the [facility]. Patient remains for discharge. Data Data Last Documented VS Vital Signs Date Time Temp Pulse Resp B/P (MAP) Pulse Ox O2 Delivery O2 Flow Rate FiO2 04/08/17 06:48 99.1 58 18 125/72 (89) 95 Room Air Orders Orders Complete Blood Count With Diff (04/07/17 17:03) Comprehensive Metabolic Panel (04/07/17 17:03) Thyroid Stimulating Hormone (04/07/17 17:03) Psych Screen (04/07/17 17:03) Drug Screen, Random Urine (04/07/17 17:03) Alcohol (Ethanol) (04/07/17 17:03) Diet Regular Basic (04/08/17 Breakfast) Ed Discharge Order (04/08/17 09:35) Labs Laboratory Tests Test 04/07/17 17:30 04/07/17 23:11 White Blood Count 10.6 TH/MM3 Red Blood Count 4.39 MIL/MM3 Hemoglobin 14.3 GM/DL Hematocrit 40.1 % Mean Corpuscular Volume 91.3 FL Mean Corpuscular Hemoglobin 32.6 PG Mean Corpuscular Hemoglobin Concent 35.7 % Red Cell Distribution Width 14.2 % Platelet Count 149 TH/MM3 Mean Platelet Volume 9.7 FL Neutrophils (%) (Auto) 58.7 % Lymphocytes (%) (Auto) 31.3 % Monocytes (%) (Auto) 6.9 % Eosinophils (%) (Auto) 2.5 % Basophils (%) (Auto) 0.6 % Neutrophils # (Auto) 6.2 TH/MM3 Lymphocytes # (Auto) 3.3 TH/MM3 Monocytes # (Auto) 0.7 TH/MM3 Eosinophils # (Auto) 0.3 TH/MM3 Basophils # (Auto) 0.1 TH/MM3 CBC Comment DIFF FINAL Differential Comment Blood Urea Nitrogen 6 MG/DL Creatinine 0.81 MG/DL Random Glucose 79 MG/DL Total Protein 7.3 GM/DL Albumin 4.0 GM/DL Calcium Level 9.1 MG/DL Alkaline Phosphatase 50 U/L Aspartate Amino Transf (AST/SGOT) 25 U/L Alanine Aminotransferase (ALT/SGPT) 27 U/L Total Bilirubin 0.4 MG/DL Sodium Level 132 MEQ/L Potassium Level 3.5 MEQ/L Chloride Level 96 MEQ/L Carbon Dioxide Level 25.6 MEQ/L Anion Gap 10 MEQ/L Estimat Glomerular Filtration Rate 100 ML/MIN Thyroid Stimulating Hormone 3rd Gen 0.992 uIU/ML Ethyl Alcohol Level 131 MG/DL Urine Opiates Screen NEG Urine Barbiturates Screen NEG Urine Amphetamines Screen NEG Urine Benzodiazepines Screen NEG Urine Cocaine Screen POS Urine Cannabinoids Screen NEG MDM Medical Record Reviewed: Yes Supervised Visit with COY: Yes Narrative Course 51-year-old male previously medically cleared for psychiatric evaluation, has been seen by Dr. Waldrop, and felt to be psychiatrically stable for discharge to the [facility]. Patient remains for discharge. Diagnosis Primary Impression: Polysubstance abuse Disposition: 70 TRANSFER TO OTHER FACILITY Condition: Stable Thiago Ahumada Apr 08, 2017 09:37
== END 2017-04-08 10:28 | disposition short-term general hospital (02) ==
LOC: NEPD 16:48 → NEPJ 04-08 10:28
DX: F14.10 Cocaine abuse, uncomplicated (principal); F60.2 Antisocial personality disorder; R45.851 Suicidal ideations; F25.9 Schizoaffective disorder, unspecified; F31.9 Bipolar disorder, unspecified; K21.9 Gastro-esophageal reflux disease without esophagitis; F17.200 Nicotine dependence, unspecified, uncomplicated; Z87.820 Personal history of traumatic brain injury; Z79.899 Other long term (current) drug therapy
CPT/HCPCS: 80053; 80307; 84443; 85025; 99285